=== PATIENT | female | born 1970 | race American Indian/Alaskan Native ===

== ENCOUNTER 2019-04-17 09:59 | Emergency (ER) | payer BC ==
[2019-04-17 15:38] VITALS: BP 124/58
--- NOTE | 2019-04-17 15:42 | Emergency Department Report ---
Chief Complaint: Chest Pain Stated Complaint: CHEST PAIN, CHEST PRESSURE Time Seen by Provider: 04/17/19 15:35 - HPI History of Present Illness: 48-year-old -[place] female presents to the emergency room complaining of chest pressure and shortness of breath x3 weeks. Patient denies any cough or fever no vomiting no nausea. She reports that the ibuprofen helps but comes back. Patient currently has no pain or shortness of breathing. Patient states that when she does have it what makes it worse is when she is sitting quietly and gets better when she walks and moves. - Exam Physical Exam: Gen: alert oriented NAD Cardic: regular rate and rhythm no murmurs appreciated Resp: Clear to auscultation bilateral no wheezing no rales or rhonchi. Abdomen: Soft nontender nondistended normal bowel sounds. MSE screening note: Focused history and physical exam performed. Due to findings the following was ordered: 48-year-old -[place] female presents to the emergency room complaining of chest pressure and shortness of breath x3 weeks. Patient denies any cough or fever no vomiting no nausea. She reports that the ibuprofen helps but comes back. Patient currently has no pain or shortness of breathing. Patient states that when she does have it what makes it worse is when she is sitting quietly and gets better when she walks and moves. Patient currently has been no chest pain or shortness of breathing. Patient has a normal EKG. I recommend for you to follow-up with your primary care provider I have listed 1 below for your convenience ED Disposition for MSE Disposition: Z-07 MED SCREENING EXAM-LEFT Is pt being admited?: No Does the pt Need Aspirin: No Condition: Stable Additional Instructions: Chest x-ray EKG are within normal limits. I recommend for you to follow-up with a primary care provider. You can take ibuprofen or Tylenol for pain management. Referrals: PRIMARY MD KELLY [Primary Care Provider] - 3-5 Days RASHMI WALLACE MD [Staff Physician] - 3-5 Days Forms: Work/School Release Form(ED)
--- NOTE | 2019-04-17 16:21 | XRay Report ---
CHEST 2 VIEWS INDICATION: sob,cough and rales. COMPARISON: None FINDINGS: Support devices: None. Heart: Within normal limits. Lungs/pleura: No acute air space or interstitial disease. No pneumothorax. Additional findings: None. IMPRESSION: No acute findings. Signer Name: Cayetano Dorantes Jr, MD Signed: 04/17/2019 4:17 PM Workstation Name: [id number]
== END 2019-04-17 16:43 | disposition left against medical advice (07) ==
LOC: ED 09:59
DX: R07.89 Other chest pain (principal); R06.02 Shortness of breath
CPT/HCPCS: 71046; 93005; 93010